=== PATIENT | male | born 1970 | race Caucasian/White ===

== ENCOUNTER 2017-01-10 15:38 | Emergency (ER) | payer SELFPAY ==
[~2017-01-10] VITALS: Ht 177.8 cm; Wt 95.5 kg
[2017-01-10 15:40] VITALS: BP 157/78; PULSE 87; RESP 20; TEMP 98.4; O2SAT 97
--- NOTE | 2017-01-10 16:58 | PD ---
HPI Chief Complaint: Medication Refill Request Time Seen by Provider: 16:57 Travel History International Travel<30 days: No Contact w/Intl Traveler<30days: No Traveled to known affect area: No History of Present Illness HPI 46-year-old male presents to the emergency Department with medication refill of hypertension medications. Patient states he was just recently released from nursing home, and has been without his hypertensive meds for approximately 20 days. He is unsure of the exact medications but remembers one to be amlodipine and clonidine. Third medication he took once in the morning as well. When I discussed with him he thinks it may have been lisinopril. He isn't short of the dosing. Patient does have a primary care physician but has not been able to obtain an appointment until 2 weeks from today. He currently has no other complaints. He has no known drug allergies. PFSH Past Medical History Cardiovascular Problems: Yes Social History Alcohol Use: Yes Tobacco Use: Yes Substance Use: No Allergies-Medications (Allergen,Severity, Reaction): Coded Allergies: No Known Allergies (Unverified , 01/10/17) Reported Meds & Prescriptions Reported Meds & Active Scripts Active Clonidine (Clonidine HCl) 0.1 Mg Tab 0.1 Mg PO BID Lisinopril 20 Mg Tab 20 Mg PO DAILY Amlodipine (Amlodipine Besylate) 5 Mg Tab 5 Mg PO DAILY Review of Systems Except as stated in HPI: all other systems reviewed are Neg General / Constitutional: No: Fever Eyes: No: Visual changes HENT: No: Headaches Cardiovascular: No: Chest Pain or Discomfort Respiratory: No: Shortness of Breath Gastrointestinal: No: Abdominal Pain Genitourinary: No: Dysuria Musculoskeletal: No: Pain Skin: No Rash Neurologic: No: Weakness Psychiatric: No: Depression Endocrine: No: Polydipsia Hematologic/Lymphatic: No: Easy Bruising Physical Exam Narrative GENERAL: Patient is in no acute distress. SKIN: Warm and dry. HEAD: Atraumatic. Normocephalic. EYES: Pupils equal and round. No scleral icterus. No injection or drainage. ENT: No nasal bleeding or discharge. Mucous membranes pink and moist. Pharynx is clear. Airway patent. NECK: Trachea midline. Supple. CARDIOVASCULAR: Regular rate and rhythm. RESPIRATORY: No accessory muscle use. Clear to auscultation. Breath sounds equal bilaterally. MUSCULOSKELETAL: Extremities without clubbing, cyanosis, or edema. No obvious deformities. NEUROLOGICAL: Awake and alert. No obvious cranial nerve deficits. Motor grossly within normal limits. Five out of 5 muscle strength in the arms and legs. Normal speech. PSYCHIATRIC: Appropriate mood and affect; insight and judgment normal. Data Data Last Documented VS Vital Signs Date Time Temp Pulse Resp B/P Pulse Ox O2 Delivery O2 Flow Rate FiO2 01/10/17 15:40 98.4 87 20 157/78 97 Room Air MDM Medical Decision Making Medical Screen Exam Complete: Yes Emergency Medical Condition: Yes Differential Diagnosis Hypertension. Medication review. Medication refill. Narrative Course Patient is given a prescription for lisinopril 20 mg daily. #30 Patient is given a prescription for amlodipine 5 mg daily #30. Patient is given a prescription for clonidine 0.1 mg twice a day 30 days. Patient is to follow-up with his primary care physician in the next month for continued refills and adjustment of meds as needed. Diagnosis Primary Impression: Encounter for medication refill Additional Impression: Hypertension Qualified Code: I10 - Essential hypertension Referrals: Primary Care Physician Patient Instructions: 2 Gram Sodium Diet (GEN), General Instructions Additional Instructions: Patient is given a prescription for lisinopril 20 mg daily. #30 Patient is given a prescription for amlodipine 5 mg daily #30. Patient is given a prescription for clonidine 0.1 mg twice a day 30 days. Patient is to follow-up with his primary care physician in the next month for continued refills and adjustment of meds as needed. Med/Other Pt SpecificInfo: Prescription(s) given Scripts Clonidine 0.1 Mg Tab0.1 Mg PO BID #60 TAB Ref 0 Prov:Ale Mijares MD 01/10/17 Lisinopril 20 Mg Tab20 Mg PO DAILY #30 TAB Ref 0 Prov:Ale Mijares MD 01/10/17 Amlodipine 5 Mg Tab5 Mg PO DAILY #30 TAB Ref 0 Prov:Ale Mijares MD 01/10/17 Disposition: 01 DISCHARGE HOME Condition: Stable Johny Palacio Jan 10, 2017 16:58
[2017-01-10] MEDS ORDERED: AMLO5TAB2 PO (17:01)
[2017-01-10] MEDS ORDERED: CLON0.1T PO (17:01)
[2017-01-10] MEDS ORDERED: LISI-515 PO (17:01)
== END 2017-01-10 17:49 | disposition home or self-care (01) ==
LOC: NEPK 15:38
DX: Z76.0 Encounter for issue of repeat prescription (principal); I10 Essential (primary) hypertension; Z79.899 Other long term (current) drug therapy; Z72.0 Tobacco use
CPT/HCPCS: 99281

== ENCOUNTER 2017-02-16 12:33 | Emergency (ER) | payer SELFPAY ==
[~2017-02-16] VITALS: Ht 175.3 cm; Wt 100.0 kg
[~2017-02-16 12:33] MED LIST: AMLO5TAB2 PO; CLON0.1T PO; LISI-515 PO
[2017-02-16 12:51] VITALS: BP 139/73; PULSE 76; RESP 15; TEMP 99; O2SAT 97
--- NOTE | 2017-02-16 13:52 | PD ---
HPI Chief Complaint: Hypertension Time Seen by Provider: 13:40 Travel History International Travel<30 days: No Contact w/Intl Traveler<30days: No Traveled to known affect area: No History of Present Illness HPI 46-year-old male with history of hypertension presents emergency department requesting HTN medication refill. Patient reports his last dose of lisinopril was 3 days ago. He reports he used to be followed by Dr. Hope but stopped going to see her because he had a difficult time understanding her colleague. He is looking for a referral to a new PCP. He reports that he has been on lisinopril 20 mg daily for the last several years. He denies headache, visual changes, dizziness, chest pain, shortness of breath. PFSH Past Medical History Narrative Medical Hypertension Cardiovascular Problems: Yes Hypertension: Yes Influenza Vaccination: No Past Surgical History Surgical History: No Previous Surgery Social History Alcohol Use: Yes Tobacco Use: Yes (1PPD) Substance Use: No Allergies-Medications (Allergen,Severity, Reaction): Coded Allergies: No Known Allergies (Unverified , 02/16/17) Reported Meds & Prescriptions Reported Meds & Active Scripts Active No Active Prescriptions or Reported Medications Review of Systems Except as stated in HPI: all other systems reviewed are Neg Physical Exam Narrative GENERAL: Well-nourished, well-developed patient. SKIN: Focused skin assessment warm/dry. HEAD: Normocephalic. EYES: No scleral icterus. No injection or drainage. NECK: Supple, trachea midline. No JVD or lymphadenopathy. CARDIOVASCULAR: Regular rate and rhythm without murmurs, gallops, or rubs. RESPIRATORY: Breath sounds equal bilaterally. No accessory muscle use. GASTROINTESTINAL: Abdomen soft, non-tender, nondistended. MUSCULOSKELETAL: No cyanosis, or edema. BACK: Nontender without obvious deformity. No CVA tenderness. Data Data Last Documented VS Vital Signs Date Time Temp Pulse Resp B/P Pulse Ox O2 Delivery O2 Flow Rate FiO2 02/16/17 12:51 99.0 76 15 139/73 97 MDM Medical Decision Making Medical Screen Exam Complete: Yes Emergency Medical Condition: Yes Differential Diagnosis Medication refill, hypertension, medical screening exam Narrative Course 46-year-old male with history of hypertension presents emergency department requesting HTN medication refill. Patient reports last his lisinopril was 3 days ago. He reports he is looking for a new PCP. Patient reports she's been on lisinopril 20 mg daily for the last several years. Patient's blood pressures in the emergency department was 138/74, 148/86. Patient's lisinopril will be refilled and patient referred to the [facility] for follow-up. Diagnosis Primary Impression: Encounter for medication refill Additional Impression: Hypertension Qualified Code: I10 - Hypertension, unspecified type Referrals: Rick Sprague MD [facility] Additional Instructions: Take the medication as prescribed. Make an appointment for follow-up with the [place] [facility] or new PCP. Return to the emergency department if new worsening symptoms. Scripts Lisinopril 20 Mg Tab20 Mg PO DAILY #30 TAB Ref 0 Prov:Yohana Archibald 02/16/17 Disposition: 01 DISCHARGE HOME Condition: Stable Yohana Archibald Feb 16, 2017 13:52
[2017-02-16] MEDS ORDERED: LISI-515 PO (14:05)
[2017-02-16 14:12] VITALS: BP 128/63
== END 2017-02-16 14:15 | disposition home or self-care (01) ==
LOC: PHEFT 12:33
DX: I10 Essential (primary) hypertension (principal); F17.200 Nicotine dependence, unspecified, uncomplicated; Z76.0 Encounter for issue of repeat prescription; Z86.79 Personal history of other diseases of the circulatory system
CPT/HCPCS: 99281